=== PATIENT | female | born 1950 | race Native Hawaiian/Other Pacific Islander ===

== ENCOUNTER 2017-08-13 01:28 | Emergency (ER) | payer OTHER ==
[~2017-08-13] VITALS: Ht 165.1 cm; Wt 121.6 kg
[~2017-08-13 01:28] MED LIST: ALVESCO160 MCG IN; ASA LO-DOSE81 MG OR; BENICAR20 MG PO; CLONIDINE0.1 MG PO; DEXL60CA4 PO; DULO60CA2 OR; FEMHRT; GABA400C2 PO; HYDROCORT10 MG OR; HYOMAX-SL0.125 MG SL; METH10TA64; ROSU10TA PO
[2017-08-13] MEDS ORDERED: MELOXICAM7.5 MG OR (02:12)
[2017-08-13 03:33] VITALS: BP 154/85; TEMP 98.4
== END 2017-08-13 03:35 | disposition home or self-care (01) ==
LOC: ED 01:28
DX: S16.1XXA Strain of muscle, fascia and tendon at neck level, initial encounter (principal); S50.01XA Contusion of right elbow, initial encounter; S70.01XA Contusion of right hip, initial encounter; S40.011A Contusion of right shoulder, initial encounter; W18.39XA Other fall on same level, initial encounter; Y92.098 Other place in other non-institutional residence as the place of occurrence of the external cause
CPT/HCPCS: 96372; 99283

== ENCOUNTER 2020-03-10 11:23 | Outpatient (CLI) | payer OTHER ==
[~2020-03-10 11:23] MED LIST changes: +MELOXICAM7.5 MG OR
== END 2020-03-10 23:24 | disposition home or self-care (01) ==
LOC: LAB 11:23
DX: E27.49 Other adrenocortical insufficiency (principal)
CPT/HCPCS: 82530

== ENCOUNTER 2020-10-21 09:21 | Outpatient (CLI) | payer OTHER | END 2020-10-21 22:08 | disposition home or self-care (01) | LOC: LAB 09:21 | PROVIDERS: ATTEND Internal Medicine Endocrinology, Diabetes & Metabolism | DX: E27.8 Other specified disorders of adrenal gland (principal) | CPT/HCPCS: 82530 ==

== ENCOUNTER 2020-11-04 14:03 | Outpatient (CLI) | payer OTHER | END 2020-11-04 22:58 | disposition home or self-care (01) | LOC: INF 14:03 | PROVIDERS: ATTEND Internal Medicine | DX: Z23 Encounter for immunization (principal) | CPT/HCPCS: 96372 ==

== ENCOUNTER 2020-11-26 14:05 | Outpatient (CLI) | payer OTHER | END 2020-11-26 19:57 | disposition home or self-care (01) | LOC: INF 14:05 | PROVIDERS: ATTEND Internal Medicine | DX: Z23 Encounter for immunization (principal) | CPT/HCPCS: 96372 ==